=== PATIENT | female | born 1990 ===

== ENCOUNTER 2020-04-12 13:37 | Outpatient (REF) | payer MEDICAID, SELFPAY | END 2020-04-12 13:38 | disposition home or self-care (01) | LOC: HO.LAB 13:37 | PROVIDERS: Visit Provider Internal Medicine | DX: Z20.828 Contact with and (suspected) exposure to other viral communicable diseases (principal) | CPT/HCPCS: C9803; U0003 ==

== ENCOUNTER 2020-08-01 08:55 | Outpatient (REF) | payer MEDICAID, SELFPAY ==
--- NOTE | 2020-08-01 08:45 | EMG_ITS ---
Bilateral median and ulnar motor and sensory studies were performed. Bilateral radial sensory studies were performed and paraspinal muscles were tested. IMPRESSION: [id number] bilateral median neuropathy across carpal tunnel. MD HARRIET Anderson/WOLF / [id number]
== END 2020-08-01 08:56 | disposition home or self-care (01) ==
LOC: HO.NEURO 08:55
PROVIDERS: Visit Provider Family Medicine
DX: R20.0 Anesthesia of skin (principal); M25.531 Pain in right wrist; M25.532 Pain in left wrist
CPT/HCPCS: 95886; 95911

== ENCOUNTER 2020-09-02 09:12 | Outpatient (REF) | payer MEDICAID, SELFPAY ==
--- NOTE | ~2020-09-02 | US_ITS ---
EXAMINATION: US THYROID CLINICAL INFORMATION: Enlarged thyroid COMPARISON: None TECHNIQUE: Linear transducer grayscale and color Doppler examination with attention to the region of the thyroid. FINDINGS: SIZE: Measurements of the thyroid lobes and nodules are given in sagittal, anteroposterior and transverse dimensions respectively. Right Thyroid Lobe: 5.4 x 1.9 x 1.9 cm, volume 9.9 mL. Parenchyma: The gland echotexture is homogeneous. Thyroid vascularity is normal. Left Thyroid Lobe: 5.3 x 1.4 x 1.6 cm, volume 5.9 mL. Parenchyma: The gland echotexture is homogeneous. Thyroid vascularity is normal. Isthmus: 0.6 cm in maximum AP dimension. Estimated total number of nodules greater than or equal to 1 cm: 0. 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 Location: Isthmus. Size: 0.5 x 0.4 x 0.4 cm, volume 0.04 mL. Nodule characteristics: Composition: Solid (2). Echogenicity: Isoechoic (1). Shape: Not taller than wide (0). Margins: Smooth (0). Echogenic Foci: None (0). ACR TI-RADS total points: 3 ACR TI-RADS category: 3 2. Location: Left inferior. Size: 0.9 x 0.9 x 0.9 cm, volume 0.38 mL. Nodule characteristics: Composition: Solid (2). Echogenicity: Hyperechoic (1). Shape: Not taller than wide (0). Margins: Smooth (0). Echogenic Foci: None (0). ACR TI-RADS total points: 3 ACR TI-RADS category: 3 NODES: No lymphadenopathy is seen in the tissue surrounding the thyroid gland. US/US thyroid IMPRESSION: Slightly enlarged right lobe. Two thyroid nodules that do not meet ACR TI-RADS criteria for follow-up or FNA. ACR TI-RADS RECOMMENDATION REFERENCE: Ultrasound-guided fine-needle aspiration, followup ultrasound, no further follow up. * TR1 (0 point) and TR 2 (2 points): No FNA or follow up * TR3 (3 points): FNA if more than or equal to 2.5 cm in maximum dimension, followup ultrasound in 1, 3 and 5 years if 1.5 to 2.4 cm in maximum dimension. * TR4 (4-6 points): FNA if more than or equal to 1.5 cm in maximum dimension, followup ultrasound in 1, 2, 3 and 5 years if 1 to 1.4 cm in maximum dimension. * TR5 (more than or equal to 7 points): FNA if more than or equal to 1 cm in maximum dimension, followup ultrasound every year for 5 years if 0.5 to 0.9 cm in maximum dimension. * TR3, TR4 or TR5 nodules that are below the size threshold for follow up receive no follow up.
== END 2020-09-02 09:13 | disposition home or self-care (01) ==
LOC: HO.US 09:12
PROVIDERS: Visit Provider Internal Medicine
DX: R22.1 Localized swelling, mass and lump, neck (principal)
CPT/HCPCS: 76536

== ENCOUNTER → 2020-09-03 12:56 | Outpatient (BNVA) | payer MEDICAID, SELFPAY | PROVIDERS: PCP Internal Medicine; Visit Provider Orthopaedic Surgery | DX: G56.02 Carpal tunnel syndrome, left upper limb (principal); G56.01 Carpal tunnel syndrome, right upper limb | CPT/HCPCS: 99202 ==

== ENCOUNTER 2020-11-04 16:36 | Emergency (ER) | payer MEDICAID, SELFPAY ==
--- NOTE | 2020-11-04 17:07 | ED_ITS ---
HPI - General Adult General Chief complaint: General Medical Stated complaint: covid test - exposed Time Seen by Provider: 11/04/20 17:07 Source: patient Mode of arrival: ambulatory Limitations: no limitations History of Present Illness MD complaint: needs COVID test for travel Onset (ago): day(s) (today) Severity: mild Relieving factors: none Exacerbating factors: none Associated symptoms: denies other symptoms Treatments prior to arrival: none Related Data Home Medications Medication Instructions Recorded Confirmed No Known Home Meds 09/03/20 09/03/20 Allergies Allergy/AdvReac Type Severity Reaction Status Date / Time shrimp Allergy Unknown DIFFICULTY Verified 11/04/20 17:09 BREATHING Review of Systems Review of Systems: Constitutional : No Weight loss, No Fever, No Chills ENT/Mouth : No sore throat, No Rhinorrhea Eyes: No Eye Pain, No Swelling Cardiovascular : No Chest Pain, No SOB Respiratory : No Cough, No Sputum Gastrointestinal : No Nausea, No Vomiting Genitourinary : No Dysuria, No Urinary Frequency Musculoskeletal : No joint pain, No Myalgias Skin : No Skin Lesions, No rash Neuro : No Weakness, No Numbness PMFSH Past Medical History Attestation statement: The following information was validated with the patient. 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 Oriented X3. No acute distress. Eyes: Pupils equal, round and reactive to light. ENT: Pharynx normal. Neck: Normal inspection. CVS: Normal heart rate and rhythm. Pulses normal. Respiratory: No respiratory distress. Breath sounds normal. Abdomen: Soft no trauma noted Skin: Skin warm and dry. Normal skin color. Extremities: normal ROM Neuro: Oriented X 3. No motor deficit. No sensory deficit. Medical Decision Making MDM Narrative Medical decision making narrative: 30 yo female here with need for COVID testing due to family issue, no symptoms, not toxic, PCR ordered will call at home Lab Data Labs: Lab Results 11/04/20 Range/Units 17:19 Coronavirus (PCR) NEGATIVE (Negative) Influenza Type A (PCR) NEGATIVE (Negative) Influenza Type B (PCR) NEGATIVE (Negative) RSV RNA Qual (PCR) NEGATIVE (Negative) Discharge Plan Discharge Clinical Impression: Encounter for laboratory testing for COVID-19 virus Patient Disposition: Home, Self-Care Instructions: COVID-19 (Coronavirus Disease 2019) (ED) Additional Instructions: return to ED for any worsening symptoms or concerns Interventions: ED Discharge Assessment Last Done: 11/04/20 17:21 Discharge Date/Time: 11/04/20 17:22
[2020-11-04 17:10] VITALS: BP 151/76; PULSE 78; RESP 18; TEMP 36.4; O2SAT 100; BMI 33.3
[2020-11-04 18:30] LABS: Influenza A PCR NEGATIVE (Negative); Influenza B PCR NEGATIVE (Negative); Resp Syncy Virus RNA Qual PCR NEGATIVE (Negative); SARS COV2 PCR INHOUSE NEGATIVE (Negative)
== END 2020-11-04 17:22 | disposition home or self-care (01) ==
PROVIDERS: Emergency Provider Emergency Medicine
DX: Z20.822 Contact with and (suspected) exposure to COVID-19 (principal); Z90.5 Acquired absence of kidney
CPT/HCPCS: 0241U; 36415; 99283

== ENCOUNTER 2023-08-02 14:12 | Outpatient (REF) | payer MEDICAID, SELFPAY ==
[2023-08-02 16:35] LABS: Estimated Average Glucose 100 mg/dL; Hemoglobin A1c % 5.1 % (<6.0)
[2023-08-02 16:54] LABS: Alanine Aminotransferase 18 U/L (0-31); Albumin Level 4.3 g/dL (3.5-5.0); Alkaline Phosphatase 75 U/L (39-117); Anion Gap 12 (12-20); Aspartate Amino Transferase 19 U/L (5-31); Bilirubin Total 0.2 mg/dL (0.0-1.0); Blood Urea Nitrogen 17 mg/dL (9-16); Calcium 9.7 mg/dL (8.4-10.2); Carbon Dioxide 26 mmol/L (22-29); Chloride 105 mmol/L (96-108); Cholesterol 197 mg/dL (<200); Estimated Glomerular Filt Rate > 60; Glucose Random 104 mg/dL (60-115); HDL Cholesterol 38 mg/dL (>40); LDL Cholesterol Calculated 121 mg/dL (<100); Potassium 3.9 mmol/L (3.3-5.1); Sodium 139 mmol/L (135-145); Total Protein 8.1 g/dL (6.5-8.0); Triglycerides 192 mg/dL (<150)
[2023-08-02 17:10] LABS: TSH reflex Free T4 1.31 uIU/mL (0.32-4.0)
[2023-08-02 18:18] LABS: Reflex LDLD? No
== END 2023-08-02 14:13 | disposition home or self-care (01) ==
LOC: HO.HHCL 14:12
PROVIDERS: Visit Provider Family Medicine
DX: I15.0 Renovascular hypertension (principal); Z83.3 Family history of diabetes mellitus
CPT/HCPCS: 36415; 80053; 80061; 83036; 84443

== ENCOUNTER 2023-12-01 09:59 | Outpatient (AMB) | payer MEDICAID, SELFPAY ==
--- NOTE | 2023-12-01 10:15 | A.OFFVIS_ITS ---
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 She was referred by her PCP Venita Vann. Left is worse than her right. She is unable to take NSAIDs and does not want to take gabapentin. She is not ready for surgery but willing to discuss treatment options EMG done on 08/01/20. Patient reports her numbness is worse at night and when she is using her hands for a long time. Patient expresses having off and on numbness for about 2 + years. Her numbness is mainly on both thumbs, pointer finger and middle finger. 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 She reports that she is experiencing numbness and tingling, intermittent but daily. She reports that this numbness and tingling primarily affects the index, middle, and ring fingers bilaterally, with no numbness noted in the small finger. She also reports that she is having pain in her hand that regularly wakes her from sleep. Patient was previously evaluated by Dr. Beard in 2020, and was signed up for surgery, however she was unable to proceed with surgery at that time due to ?work being far too busy?. She reports that, at this time, symptoms have gotten worse, and she wants to proceed with treatment. Patient initially inquires about getting injections into bilateral wrists, as she is nervous about the recovery time from surgery. 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 Neuro: Patient reports normal sensation in the median nerve distribution of bilateral hands today Ulnar, radial nerves motor and sensory intact and sensation is normal to the tips of all digits. Vascular: Cap refill brisk Pain: Patient is not experiencing any pain at this time ROM: Patient is able to flex and extend all digits Hand and wrist range of motion full and intact Skin: No lacerations or abrasions. General: No ecchymosis, erythema, or evidence of infection. Psych: Appears grossly normal Affect normal Attitude cooperative Psych Appearance: grossly normal Mental Status: mental status grossly normal Results Reviewed Results Reviewed: Nerve conduction study, from [address] Pradhan IMPRESSION: [id number] bilateral median neuropathy across carpal tunnel. Assessment & Plan Assessment & Plan (1) Carpal tunnel syndrome of left wrist: Code(s): G56.02 - Carpal tunnel syndrome, left upper limb Category: Medical (2) Carpal tunnel syndrome of right wrist: Code(s): G56.01 - Carpal tunnel syndrome, right upper limb Category: Medical Plan 1. Carpal tunnel syndrome, left Numbness and tingling intermittent, but daily, worse at night Pain regularly awakened the patient from sleep Patient initially inquires about getting injection, but after discussion wants to proceed with surgery I educated the patient about the condition. I discussed both operative and nonoperative treatment options. The patient would like to proceed with surgery. The risks and benefits of operative treatment were discussed with the patient and the patient wishes to proceed with surgery. These risks include, but are not limited to, risk of damage to blood vessels, nerves, tendons, infection, recurrence, incomplete relief of preoperative symptoms, persistent pain, possible need for further surgery, and the risks associated with regional blocks and/or anesthesia. Plan is to take the patient to the operating room at some point in the next few weeks for the following procedures: 1. Left carpal tunnel release under local anesthesia All of the preoperative paperwork including the consent was discussed today. All of the patient's questions were answered in the clinic today. The patient understands that they will be in contact with our certified surgical tech/first assistant to discuss scheduling their procedure. Patient is concerned about recovery time with regards to work. Patient is educated that they will have a 2 lb weight restriction in there left hand for 4 weeks. Patient understands this, and is still open to proceeding with surgery. Patient denies diabetes, blood thinners, asthma, heart issues, lung issues, kidney issues, or current smoking. 2. Carpal tunnel syndrome, right Symptoms intermittent, but daily, worse at night Pain regularly awakening the patient from sleep Patient initially inquires about getting injection, but after discussion would like to proceed with surgical treatment pending recovery from left carpal tunnel release Patient educated that we can begin the process of scheduling surgery for right carpal tunnel release at 2 week postop visit from left carpal tunnel release. Patient is amenable to this plan. Coding Level of Care Code New Pt Level 4 (04950) Diagnoses Carpal tunnel syndrome of left wrist G56.02 Carpal tunnel syndrome of right wrist G56.01
== END 2023-12-01 11:40 | disposition home or self-care (01) ==
PROVIDERS: PCP Internal Medicine
DX: G56.03 Carpal tunnel syndrome, bilateral upper limbs (principal)
CPT/HCPCS: 99204

== ENCOUNTER → 2023-12-01 09:59 | Outpatient (BNVA) | payer MEDICAID, SELFPAY | PROVIDERS: PCP Internal Medicine | DX: G56.03 Carpal tunnel syndrome, bilateral upper limbs (principal) | CPT/HCPCS: 99212 ==

== ENCOUNTER 2024-06-20 11:25 | Outpatient (REF) | payer MEDICAID, SELFPAY ==
[2024-06-20 13:18] LABS: Hematocrit 35.9 % (37.0-47.0); Hemoglobin 11.7 g/dl (12.0-16.0); Mean Corpuscular HGB Conc 32.6 g/dl (31.0-35.0); Mean Corpuscular Hemoglobin 25.8 pg (27.0-33.0); Mean Corpuscular Volume 79.2 fL (80.0-98.0); Mean Platelet Volume 9.3 fL (9.4-12.3); Platelet Count 318 X10*3/uL (160-400); Red Blood Count 4.53 X10*6/uL (4.20-5.50); Red Cell Distribution Width 13.1 % (11.0-16.0); White Blood Count 6.2 X10*3/uL (4.8-10.8)
[2024-06-20 13:33] LABS: Anion Gap 12 (12-20); Blood Urea Nitrogen 15 mg/dL (9-16); C Reactive Protein 1.94 mg/dL (< or = 0.50); Calcium 9.5 mg/dL (8.4-10.2); Carbon Dioxide 23 mmol/L (22-29); Chloride 107 mmol/L (96-108); Estimated Glomerular Filt Rate > 60; Glucose Random 88 mg/dL (60-115); Potassium 4.4 mmol/L (3.3-5.1); Sodium 138 mmol/L (135-145)
[2024-06-20 13:35] LABS: Rheumatoid Factor < 13.0 IU/mL (<15.0)
[2024-06-20 13:59] LABS: Erythrocyte Sedimentation Rate 36 MM/HR (0-20)
[2024-06-21 21:33] LABS: Anti DNA DS Antibody <1 IU/mL
[2024-06-22 14:53] LABS: Anti Nuclear Antibody Screen NEGATIVE (NEGATIVE)
== END 2024-06-20 11:26 | disposition home or self-care (01) ==
LOC: HO.HHCL 11:25
PROVIDERS: Visit Provider Family Medicine
DX: M25.431 Effusion, right wrist (principal); M25.432 Effusion, left wrist
CPT/HCPCS: 36415; 80048; 85027; 85652; 86038; 86140; 86225; 86431